=== PATIENT | male | born 1970 | race Caucasian/White ===

== ENCOUNTER 2020-03-15 14:23 | Outpatient (CLI) | payer MEDICARE, MEDICAID, SELFPAY ==
--- NOTE | ~2020-03-15 | XR_ITS ---
EXAMINATION: XR foot LT min 3V DATE: 03/15/2020 14:51 INDICATION: Left foot and first toe pain TECHNIQUE: Dorsoplantar, lateral, and 2 oblique views of the left foot were obtained. COMPARISON: 02/26/2012 FINDINGS: There is no fracture, dislocation, or subluxation. The bones, soft tissues, and joint space s are normal. IMPRESSION: 1. No acute osseous abnormality. Reviewed, dictated and finalized at location A. R LINEWORKER
== END 2020-03-15 14:24 | disposition home or self-care (01) ==
LOC: ANHIMG 14:30
PROVIDERS: PCP Family Medicine Adolescent Medicine; Visit Provider Physician Assistant
DX: M25.572 Pain in left ankle and joints of left foot (principal)
CPT/HCPCS: 73630

== ENCOUNTER 2020-03-20 07:32 | Outpatient (CLI) | payer MEDICARE, MEDICAID, SELFPAY ==
[2020-03-20 08:25] LABS: Alanine Aminotransferase 17 U/L (4-50); Albumin Level 4.3 g/dL (3.5-5.1); Alkaline Phosphatase 50 U/L (38-126); Anion Gap 6 mmol/L (8-16); Aspartate Amino Transferase 19 U/L (17-59); Bilirubin,Total 0.4 mg/dL (0.2-1.3); Blood Urea Nitrogen 12 mg/dL (9-20); Calcium 9.3 mg/dL (8.4-10.2); Carbon Dioxide 33 mmol/L (22-30); Chloride 97 mmol/L (98-107); Cholesterol 189 mg/dL (0-200); Estimated Glomerular Filt Rate > 60; Glucose 97 mg/dL (75-110); HDL Direct 34 mg/dL; Potassium 4.6 mmol/L (3.4-5.0); Sodium 136 mmol/L (137-145); Triglycerides 211 mg/dL (<150); Uric Acid 5.4 mg/dL (3.5-8.5)
[2020-03-20 08:39] LABS: LDL Cholesterol Direct 118 mg/dL
== END 2020-03-20 07:33 | disposition home or self-care (01) ==
PROVIDERS: PCP Family Medicine Adolescent Medicine; Visit Provider Physician Assistant
DX: E78.5 Hyperlipidemia, unspecified (principal); I10 Essential (primary) hypertension; M79.675 Pain in left toe(s)
CPT/HCPCS: 36415; 80053; 80061; 84550

== ENCOUNTER 2020-05-29 17:31 | Outpatient (CLI) | payer MEDICARE, MEDICAID, SELFPAY | END 2020-05-29 17:32 | disposition home or self-care (01) | LOC: ANHCOVIDVC 17:31 | PROVIDERS: PCP Family Medicine Adolescent Medicine | DX: Z23 Encounter for immunization (principal) | CPT/HCPCS: 0001A; 91300 ==

== ENCOUNTER 2020-06-19 17:26 | Outpatient (CLI) | payer MEDICARE, MEDICAID, SELFPAY | END 2020-06-19 17:27 | disposition home or self-care (01) | LOC: ANHCOVIDVC 17:26 | PROVIDERS: PCP Family Medicine Adolescent Medicine | DX: Z23 Encounter for immunization (principal) | CPT/HCPCS: 0002A; 91300 ==

== ENCOUNTER 2021-04-02 07:53 | Outpatient (CLI) | payer MEDICARE, MEDICAID, SELFPAY ==
[2021-04-02 08:31] LABS: Alanine Aminotransferase 20 U/L (4-50); Albumin Level 4.4 g/dL (3.5-5.1); Alkaline Phosphatase 56 U/L (38-126); Anion Gap 10 mmol/L (8-16); Aspartate Amino Transferase 19 U/L (17-59); Bilirubin,Total 0.3 mg/dL (0.2-1.3); Blood Urea Nitrogen 11 mg/dL (9-20); Calcium 9.3 mg/dL (8.4-10.2); Carbon Dioxide 30 mmol/L (22-30); Chloride 97 mmol/L (98-107); Cholesterol 195 mg/dL (0-200); Estimated Glomerular Filt Rate > 60; Glucose 110 mg/dL (65-110); HDL Direct 35 mg/dL; Potassium 4.4 mmol/L (3.4-5.0); Sodium 137 mmol/L (137-145); Triglycerides 230 mg/dL (<150)
[2021-04-02 08:42] LABS: LDL Cholesterol Direct 106 mg/dL
== END 2021-04-02 07:54 | disposition home or self-care (01) ==
PROVIDERS: PCP Family Medicine Adolescent Medicine; Visit Provider Family Medicine Adolescent Medicine
DX: E78.1 Pure hyperglyceridemia (principal); I10 Essential (primary) hypertension
CPT/HCPCS: 36415; 80053; 80061

== ENCOUNTER 2022-04-08 14:33 | Outpatient (CLI) | payer MEDICARE, MEDICAID, SELFPAY ==
--- NOTE | ~2022-04-08 | XR_ITS ---
EXAMINATION: XR chest 2V Exam Date/Time: 04/08/2022 14:42 SPECIAL TESTER HISTORY: R05.9 - Cough, unspecified Comparison: 07/20/2018. RESULT: Lines, tubes, and devices: None. Lungs and pleura: Low volumes with crowding. Cardiomediastinal silhouette: Stable. Other: No acute osseous or upper abdominal finding. IMPRESSION: No acute cardiopulmonary process. Reviewed, dictated and finalized at location K. IAL TESTER
== END 2022-04-08 14:34 | disposition home or self-care (01) ==
PROVIDERS: PCP Family Medicine Adolescent Medicine; Visit Provider Physician Assistant
DX: R05.9 Cough, unspecified (principal)
CPT/HCPCS: 71046

== ENCOUNTER 2022-04-12 07:10 | Outpatient (CLI) | payer MEDICARE, MEDICAID, SELFPAY ==
[2022-04-12 08:57] LABS: Alanine Aminotransferase 31 U/L (6-50); Albumin Level 4.6 g/dL (3.5-5.1); Alkaline Phosphatase 76 U/L (38-126); Anion Gap 4 mmol/L (8-16); Aspartate Amino Transferase 25 U/L (17-59); Bilirubin,Total 0.4 mg/dL (0.2-1.3); Blood Urea Nitrogen 14 mg/dL (9-20); Calcium 8.9 mg/dL (8.4-10.2); Carbon Dioxide 32 mmol/L (22-30); Chloride 95 mmol/L (98-107); Cholesterol 179 mg/dL (0-200); Estimated Glomerular Filt Rate > 60; Glucose 106 mg/dL (65-110); HDL Direct 37 mg/dL; Potassium 4.1 mmol/L (3.4-5.0); Sodium 131 mmol/L (137-145); Triglycerides 115 mg/dL (<150)
[2022-04-12 09:08] LABS: LDL Cholesterol Direct 101 mg/dL
== END 2022-04-12 07:11 | disposition home or self-care (01) ==
PROVIDERS: PCP Family Medicine Adolescent Medicine; Visit Provider Physician Assistant
DX: E78.1 Pure hyperglyceridemia (principal); I10 Essential (primary) hypertension
CPT/HCPCS: 36415; 80053; 80061

== ENCOUNTER 2022-07-10 17:07 | Emergency (ER) | payer MEDICARE, MEDICAID, SELFPAY ==
--- NOTE | ~2022-07-10 | XR_ITS ---
EXAMINATION: XR chest 2V DATE: 07/10/2022 17:46 INDICATION: Cough and congestion. TECHNIQUE: Frontal and lateral views of the chest were obtained. COMPARISON: Chest 2 views 04/08/2022 FINDINGS: The chest demonstrates clear lungs without pneumonia, pleural effusion, or pneumothorax. Th e heart size is normal. IMPRESSION: 1. No acute cardiopulmonary disease. Reviewed, dictated and finalized at location E.
--- NOTE | 2022-07-10 17:09 | ED.URI ---
HPI - URI/Sore Throat General Chief Complaint: Upper Respiratory Infection Stated Complaint: Cough,Congestion Time Seen by Provider: 07/10/22 17:15 Source: patient, RN notes reviewed and old records reviewed Mode of arrival: ambulatory Limitations: no limitations History of Present Illness HPI Narrative: 52-year-old male presents to the [facility] with mom with complaints of cough, chest congestion for 2 days. Denies chest pain. Denies shortness of breath. Denies fevers. Mom reports a productive cough. Has taken some Delsym with no relief. Onset (ago): day(s) Related Data Home Medications Medication Instructions Recorded Confirmed carbamazepine 200 mg 600 mg PO QAM AND QPM 1 AM 2PM 07/25/21 07/10/22 capsule,extended release [id number] krill oil 500 mg capsule 350 mg PO BID 07/25/21 07/10/22 lisinopril 40 mg tablet 40 mg PO DAILY 04/15/22 07/10/22 losartan 50 mg tablet 50 mg PO DAILY 07/10/22 07/10/22 Allergies Allergy/AdvReac Type Severity Reaction Status Date / Time metoclopramide [From Reglan] Allergy Jittery Verified 07/10/22 17:19 Review of Systems Review of Systems: All systems reviewed & are unremarkable except as noted in HPI and below Constitutional: Constitutional: Reports no additional constitutional complaints Eyes: Eyes: Reports no additional eye complaints ENT: Reports system reviewed and no additional complaints, except as documented Cardiovascular: Cardiovascular: Reports no additional cardiovascular complaints, Denies chest pain and Denies dyspnea Respiratory: Respiratory: Reports as per HPI, Reports chest congestion, Reports cough and Denies dyspnea Gastrointestinal: Gastrointestinal: Reports no additional gastrointestinal complaints, Denies abdominal pain, Denies nausea and Denies vomiting Musculoskeletal: Musculoskeletal: Reports no additional musculoskeletal complaints Integumentary/Breasts: Skin/Breast: Reports system reviewed and no additional complaints, except as docu Neurologic: Reports system reviewed and no additional complaints, except as documented Psychiatric: Psychiatric: Reports no additional psychiatric complaints Allergic/Immunologic: Allergic/Immunologic: Reports no additional allergic/immunologic complaints PMFSH Past Medical History Medical History Hypertension Hypertriglyceridemia Seizure disorder Surgical History Surgical History History of hip surgery History of umbilical hernia repair Hx of appendectomy Hx of brain surgery Family History Family History Father Family history of malignant neoplasm Colon polyp Hypertension Sibling Family history of diabetes mellitus in first degree relative Asthma Diabetes mellitus Grandparent Breast cancer Cerebrovascular accident Hypertension Grandparent Cerebrovascular accident Family history of coronary artery disease Hypertension Mother Depression Social History Social History Smoking status: Never smoker Second hand tobacco smoke exposure: No Alcohol intake: never Substance use: never Substance use type: does not use Living arrangements: with family Occupation/Education: occupation Gender identity (if verbalized by the patient): Male Sexual Orientation (if Verbalized by the Patient): Straight or Heterosexual Spiritual care concerns: No Agree to blood products: Yes Comments At the time of my signature, I reviewed and agree with the nursing past medical, surgical, social, and family history. There is no relevant family history pertinent to the patient complaint. Exam Const: General: cooperative, healthy appearing, comfortable, no acute distress, well developed, alert and well nourished Nutritional Appearance: well nourished Orientation/consciousness
[2022-07-10 17:15] VITALS: BP 139/79; PULSE 97; RESP 16; TEMP 36.5; O2SAT 98
== END 2022-07-10 18:10 | disposition home or self-care (01) ==
PROVIDERS: Emergency Provider Nurse Practitioner; PCP Family Medicine Adolescent Medicine
DX: J40 Bronchitis, not specified as acute or chronic (principal); I10 Essential (primary) hypertension; E78.1 Pure hyperglyceridemia; G40.909 Epilepsy, unspecified, not intractable, without status epilepticus
CPT/HCPCS: 71046; 99213; G0463

== ENCOUNTER 2022-07-14 16:39 | Emergency (ER) | payer MEDICARE, MEDICAID, SELFPAY ==
[2022-07-14 16:49] VITALS: BP 136/89; PULSE 73; RESP 16; TEMP 36.3; O2SAT 97
--- NOTE | 2022-07-14 16:52 | ED.EAR ---
HPI - Ear Problem General Chief complaint: Ear Stated complaint: Rt Ear Irritation Time Seen by Provider: 07/14/22 16:52 Source: patient Mode of arrival: ambulatory Limitations: no limitations History of Present Illness HPI Narrative: 52-year-old male presents with mom with complaint of right ear pain. Patient has had right ear pain for approximately 3 days. Prior to that he had congestion for approximately 1 week and continues to have congestion. Was seen at [facility] last week and diagnosed with bronchitis. Mom reports at that time was told that right ear was full of wax but it was not removed. Afebrile. Patient is well-appearing, talkative. No complaints of dizziness. All systems reviewed and negative except as noted above. Related Data Home Medications Medication Instructions Recorded Confirmed carbamazepine 200 mg 600 mg PO QAM AND QPM 1 AM 2PM 07/25/21 07/14/22 capsule,extended release [id number] krill oil 500 mg capsule 350 mg PO BID 07/25/21 07/14/22 lisinopril 40 mg tablet 40 mg PO DAILY 04/15/22 07/14/22 losartan 50 mg tablet 50 mg PO DAILY 07/10/22 07/14/22 Allergies Allergy/AdvReac Type Severity Reaction Status Date / Time metoclopramide [From Reglan] AdvReac Mild Jittery Verified 07/14/22 16:55 Review of Systems Review of Systems: CONSTITUTIONAL: Denies fever, chills, or sweats. EYES: Denies visual changes, redness, or discharge. ENT: Reports rhinorrhea, congestion, right ear pain. Denies sore throat CARDIOVASCULAR: Denies chest pain, palpitations, or edema. RESPIRATORY: Denies cough or dyspnea. GASTROINTESTINAL: Denies abdominal pain, nausea, vomiting, or diarrhea. GENITOURINARY: Denies dysuria or hematuria. SKIN: Denies rash or itching. MUSCULOSKELETAL: Denies back pain, joint pain, or myalgia. NEUROLOGIC: Denies headache, numbness, or weakness. PSYCHIATRIC: Denies anxiety or depression. All other systems reviewed are negative, except as documented in HPI. [facility] Past Medical History Medical History Hypertension Hypertriglyceridemia Seizure disorder Surgical History Surgical History History of hip surgery History of umbilical hernia repair Hx of appendectomy Hx of brain surgery Family History Family History Father Family history of malignant neoplasm Colon polyp Hypertension Sibling Family history of diabetes mellitus in first degree relative Asthma Diabetes mellitus Grandparent Breast cancer Cerebrovascular accident Hypertension Grandparent Cerebrovascular accident Family history of coronary artery disease Hypertension Mother Depression Social History Social History Smoking status: Never smoker Second hand tobacco smoke exposure: No Alcohol intake: never Substance use: never Substance use type: does not use Living arrangements: with family Occupation/Education: occupation Gender identity (if verbalized by the patient): Male Sexual Orientation (if Verbalized by the Patient): Straight or Heterosexual Spiritual care concerns: No Agree to blood products: Yes Comments reviewed Exam Narrative: GENERAL: This is a well-nourished, well-developed patient, in no apparent distress. HEAD: normocephalic, atraumatic. EYES: PERRL. Sclera clear/white. Vision is grossly intact. EARS: External ears normal, right ear canal is impacted with cerumen. Left ear canal normal. Left TM normal. NOSE: External nose normal with Primarily nasal drainage, erythema to nares with moderate congestion. THROAT: Mucous membranes moist, posterior pharynx clear. NECK: Neck supple, non-tender without lymphadenopathy, masses or thyromegaly. CARDIOVASCULAR: Regular rate and rhythm without murmurs, gallops, or rubs. RESPIRATORY: Clear
== END 2022-07-14 17:21 | disposition home or self-care (01) ==
PROVIDERS: Emergency Provider Nurse Practitioner Family; PCP Family Medicine Adolescent Medicine
DX: H66.91 Otitis media, unspecified, right ear (principal); H61.21 Impacted cerumen, right ear; I10 Essential (primary) hypertension; E78.1 Pure hyperglyceridemia; G40.909 Epilepsy, unspecified, not intractable, without status epilepticus
CPT/HCPCS: 69210; 99213; G0463

== ENCOUNTER 2022-09-22 10:06 | Outpatient (CLI) | payer MEDICARE, MEDICAID, SELFPAY ==
--- NOTE | 2022-09-22 10:42 | PCRCNOTE ---
PT. UNABLE TO COMPLETE PFT DUE TO DELAYS. PT. STRUGGLED WITH FOLLOWING DIRECTIONS. WOULD NOT BE ABLE TO GET ACCURATE RESULTS. CALLED PROVIDER TO NOTIFY THEM.
== END 2022-09-22 10:07 | disposition home or self-care (01) ==
LOC: ANHPFT 10:07
PROVIDERS: PCP Family Medicine Adolescent Medicine; Visit Provider Nurse Practitioner Family
DX: R05.3 Chronic cough (principal)
CPT/HCPCS: 99199

== ENCOUNTER 2023-05-11 16:45 | Emergency (ER) | payer MEDICARE, MEDICAID, SELFPAY ==
--- NOTE | ~2023-05-11 | XR_ITS ---
EXAM: XR humerus RT DATE: 05/11/2023 17:36 HISTORY: swollen, mass on arm, hx of lipocarcoma . COMPARISON: None available. FINDINGS: Normal mineralization. No fracture or dislocation. No lytic or blastic lesion. Mild degene rative changes in the shoulder and elbow. No erosion or periosteal change. Smoothly marginated fat de nsity 8.0 x 18.6 cm mass in the proximal medial soft tissues of the right upper arm. IMPRESSION: 18.6 cm fat density mass in the medial soft tissues of the right upper arm, possible lipoma, noting t hat more aggressive pathology cannot be excluded radiographically. Based on size, recommend surgical referral for possible excision. No acute osseous finding in the right humerus. Reviewed, dictated and finalized at location K. ER TECHNICIAN IMPRESSION: 18.6 cm fat density mass in the medial soft tissues of the right upper arm, pos sible lipoma, noting that more aggressive pathology cannot be excluded radiogra phically. Based on size, recommend surgical referral for possible excision. No acute osseous finding in the right humerus.
[2023-05-11 16:54] VITALS: BP 155/92; PULSE 92; RESP 16; TEMP 37.2; O2SAT 98
--- NOTE | 2023-05-11 17:20 | ED.EXTPRO ---
HPI - Extremity Problem General Chief complaint: Extremity Problem,Nontraumatic Stated complaint: Right Arm Pain Time Seen by Provider: 05/11/23 17:20 Source: patient Mode of arrival: ambulatory Limitations: no limitations History of Present Illness HPI Narrative: 53 yo M presents with Mom with c/o swelling to R upper arm. Mother unsure how long it's been there but just noticed today. Pt denies pain. 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 Mom has been waiting for call back from [facility] for appt. All systems reviewed and negative except as noted above. Related Data Home Medications Medication Instructions Recorded Confirmed carbamazepine 200 mg 600 mg PO QAM AND QPM 1 AM 2PM 07/25/21 05/11/23 capsule,extended release [id number] Allergies Allergy/AdvReac Type Severity Reaction Status Date / Time metoclopramide [From Reglan] AdvReac Mild Jittery Verified 05/11/23 17:05 Review of Systems Review of Systems: CONSTITUTIONAL: Denies fever, chills, or sweats. EYES: Denies visual changes, redness, or discharge. ENT: Denies rhinorrhea, congestion, sore throat, or otalgia. CARDIOVASCULAR: Denies chest pain, palpitations, or edema. RESPIRATORY: Denies cough or dyspnea. GASTROINTESTINAL: Denies abdominal pain, nausea, vomiting, or diarrhea. GENITOURINARY: Denies dysuria or hematuria. SKIN: Denies rash or itching. MUSCULOSKELETAL: Denies back pain, joint pain, or myalgia. Reports swelling to R upper extremity NEUROLOGIC: Denies headache, numbness, or weakness. PSYCHIATRIC: Denies anxiety or depression. All other systems reviewed are negative, except as documented in HPI. [facility] Past Medical History Medical History Hypertension Hypertriglyceridemia Seizure disorder Surgical History Surgical History History of hip surgery History of umbilical hernia repair Hx of appendectomy Hx of brain surgery Family History Family History Father Family history of malignant neoplasm Colon polyp Hypertension Sibling Family history of diabetes mellitus in first degree relative Asthma Diabetes mellitus Grandparent Breast cancer Cerebrovascular accident Hypertension Grandparent Cerebrovascular accident Family history of coronary artery disease Hypertension Mother Depression Social History Social History Smoking status: Never smoker Second hand tobacco smoke exposure: No Alcohol intake: never Substance use: never Substance use type: does not use Lack of Transportation: No Lack of Food: Never True Current Housing: I Have Housing Concerned About Future Housing: No Difficulty Paying Gas/Electric Bills: No Difficulty Paying for Meds: No Currently Unemployed: No Education: Decline to Answer Difficulty w/ Childcare or Family Care: No Living arrangements: with family Occupation/Education: occupation Gender identity (if verbalized by the patient): Male Sexual Orientation (if Verbalized by the Patient): Straight or Heterosexual Spiritual care concerns: No Agree to blood products: Yes Comments At time of signature, agree with nursing past medical, surgical, social and family history. There is no relevant family history pertinent to the presenting complaint. Exam Narrative: GENERAL: This is a well-nourished, well-developed patient, in no apparent distress. HEAD: normocephalic, atraumatic. EYES: PERRL. Sclera clear/white. Vision is grossly intact. EARS: External ears normal NOSE: External nose normal NECK: Neck supple, non-tender without lymphadenopathy, masses or thyromegaly. CARDIOVASCULAR: Regular rate and rhythm without murmurs, gallops, or rubs. RESPIRATORY: Clear to auscultation. Brianna
== END 2023-05-11 18:12 | disposition home or self-care (01) ==
PROVIDERS: Emergency Provider Nurse Practitioner Family; PCP Family Medicine Adolescent Medicine
DX: R22.31 Localized swelling, mass and lump, right upper limb (principal); C49.9 Malignant neoplasm of connective and soft tissue, unspecified; I10 Essential (primary) hypertension; G40.909 Epilepsy, unspecified, not intractable, without status epilepticus; E78.1 Pure hyperglyceridemia
CPT/HCPCS: 73060; 99213; G0463

== ENCOUNTER 2023-05-18 11:05 | Outpatient (CLI) | payer MEDICARE, MEDICAID, SELFPAY ==
--- NOTE | ~2023-05-18 | CT_ITS ---
EXAMINATION: CT humerus RT wo con DATE: 05/18/2023 11:51 INDICATION: Soft tissue mass at the right upper arm TECHNIQUE: High resolution computed tomography (CT) of the right upper arm was performed without intr avenous contrast. Additional sagittal and coronal reconstructions were performed. Automated exposure control and iterative reconstruction technique were employed. The dose-length product was 916.28 mGy- cm. COMPARISON: Radiographs dated 05/11/2023 FINDINGS: Macroscopic fat attenuation mass within the right triceps muscle belly consistent with an intramuscul ar lipoma which measures 14.5 cm proximal to distal length and 7.1 x 5.1 cm in maximal orthogonal dim ensions. No abnormal soft tissue component to suggest other atypical lipoma or liposarcoma. No other abnormal masses identified. No pathologically enlarged right axillary lymphadenopathy. Bone alignment is normal. Mild osteoarthritis at the right elbow, glenohumeral and acromioclavicular joints. No sarah nt effusions at the right shoulder or elbow. IMPRESSION: 1. 14.5 x 7.1 x 5.1 cm fat attenuation mass consistent with a right triceps intramuscular lipoma. Reviewed, dictated and finalized at location A. T[employer]ET METAL WORKER IMPRESSION: 1. 14.5 x 7.1 x 5.1 cm fat attenuation mass consistent with a right triceps int ramuscular lipoma.
== END 2023-05-18 11:06 ==
PROVIDERS: Visit Provider Family Medicine Adolescent Medicine
DX: R22.31 Localized swelling, mass and lump, right upper limb (principal)
CPT/HCPCS: 73200

== ENCOUNTER 2023-07-31 19:20 | Emergency (ER) | payer MEDICARE, MEDICAID, SELFPAY ==
[2023-07-31 19:34] VITALS: BP 143/85; PULSE 77; RESP 16; TEMP 36.4; O2SAT 100
[2023-07-31 19:53] VITALS: O2SAT 100
--- NOTE | 2023-07-31 19:58 | ED.ALLEREA ---
HPI - Allergic Reaction General Chief complaint: Allergic Reaction Stated complaint: surgical site redness Time Seen by Provider: 07/31/23 19:48 History of Present Illness HPI narrative: 53-year-old male presents emergency department for evaluation for a urticarial rash on his abdomen chest and back. Patient did have a history of renal mass that was excised July 06. Patient did have recent follow-up with his surgeons and had some of the glue removed from his abdomen. Family states that the rash started few days ago and has continued to worsen. Patient denies any associated abdominal pain but does report some itching. Family states the patient has had no new medication changes since his surgery. He did have some blood pressure medications that were changed at the time of the surgery because they were processed by a his kidneys. Other than the itching patient denies any pain or complaints. Related Data Home Medications Medication Instructions Recorded Confirmed carbamazepine 200 mg 600 mg PO QAM AND QPM 1 AM 2PM 07/25/21 05/11/23 capsule,extended release [id number] Allergies Allergy/AdvReac Type Severity Reaction Status Date / Time metoclopramide [From Reglan] AdvReac Mild Jittery Verified 07/31/23 19:41 Review of Systems Review of Systems: All systems reviewed & are unremarkable except as noted in HPI and below PMFSH Past Medical History Medical History Hypertension Hypertriglyceridemia Seizure disorder Surgical History Surgical History History of hip surgery History of umbilical hernia repair Hx of appendectomy Hx of brain surgery Family History Family History Father Family history of malignant neoplasm Colon polyp Hypertension Sibling Family history of diabetes mellitus in first degree relative Asthma Diabetes mellitus Grandparent Breast cancer Cerebrovascular accident Hypertension Grandparent Cerebrovascular accident Family history of coronary artery disease Hypertension Mother Depression Social History Social History Smoking status: Never smoker Second hand tobacco smoke exposure: No Alcohol intake: never Substance use: never Substance use type: does not use Lack of Transportation: No Lack of Food: Never True Current Housing: I Have Housing Concerned About Future Housing: No Difficulty Paying Gas/Electric Bills: No Difficulty Paying for Meds: No Currently Unemployed: No Education: Decline to Answer Difficulty w/ Childcare or Family Care: No Living arrangements: with family Occupation/Education: occupation Gender identity (if verbalized by the patient): Male Sexual Orientation (if Verbalized by the Patient): Straight or Heterosexual Spiritual care concerns: No Agree to blood products: Yes Exam Narrative: APPEARANCE: Well appearing, no pain, no distress, well-nourished. HEAD: normocephalic, atraumatic. EYES: PERRLA/EOMI, conjunctivae clear. NOSE: Normal no drainage EARS:TMS clear with good light reflex. THROAT: Pharynx clear, no exudate. NECK: Supple. No adenopathy, no masses. RESPIRATORY: Airway patent, respirations nonlabored. Clear to auscultation bilaterally, no rales, rhonchi, wheezing. CARDIOVASCULAR: Regular rate and rhythm without murmurs rubs or gallops. ABDOMINAL: Soft, nontender, nondistended, normal bowel sounds MUSCULOSKELETAL: Moves all extremities. Strength/ROM intact, No edema, No calf tenderness. NEURO: Alert. Cranial nerves II through XII intact. Good gait. Good coordination SKIN: Urticarial rash with hives across abdomen associated with the abdominal incision also intermittent hives on chest and back Course Vital Signs Vital signs: Vital Signs Temperature 97.6 F 05
[2023-07-31 20:20] LABS: Basophils Percent Auto 0.5 % (0.2-1.2); Eosinophils Absolute Auto 0.5 K/mm3 (0-0.3); Eosinophils Percent Auto 8.9 % (0-4.4); Hematocrit 37.8 % (42.0-52.0); Hemoglobin 12.7 g/dL (14.0-18.0); Immature Granulocyte Absolute 0.03 K/mm3 (0.00-0.031); Immature Granulocyte Percent A 0.5 % (0-0.5); Lymphocytes Absolute Auto 1.78 K/mm3 (0.9-3.2); Lymphocytes Percent Auto 29.4 % (18.3-44.2); Mean Corpuscular HGB Conc 33.6 g/dl (32-36); Mean Corpuscular Hemoglobin 30.5 pg (26-34); Mean Corpuscular Volume 90.9 fl (80-100); Mean Platelet Volume 7.9 fl (7.4-10.4); Monocytes Absolute Auto 0.6 K/mm3 (0.1-0.6); Monocytes Percent Auto 10.6 % (2.6-8.5); Neutrophils Percent Auto 50.1 % (45.5-73.1); Platelet Count Result 326 k/mm3 (150-375); Red Blood Count 4.16 M/mm3 (4.6-6.20); Red Cell Distribution Width 14.1 % (11.5-14.5); White Blood Count 6.1 K/mm3 (4.5-10.0)
[2023-07-31] MEDS: methylPREDNISolone SOD SUCC 125 MG VIAL IV PUSH (20:21)
[2023-07-31] MEDS: diphenhydrAMINE HCl INJ 50 MG/ML VIAL 25 MG IV PUSH (20:21)
[2023-07-31] MEDS: FAMOTIDINE 20 MG/2 ML VIAL IV PUSH (20:21)
[2023-07-31 20:29] LABS: Alanine Aminotransferase 66 U/L (6-50); Albumin Level 4.9 g/dL (3.5-5.1); Alkaline Phosphatase 89 U/L (38-126); Anion Gap 8 mmol/L (4-12); Aspartate Amino Transferase 31 U/L (17-59); Bilirubin,Total 0.5 mg/dL (0.2-1.3); Blood Urea Nitrogen 12 mg/dL (9-20); Calcium 9.4 mg/dL (8.4-10.2); Carbon Dioxide 31 mmol/L (22-30); Chloride 97 mmol/L (98-107); Estimated CRCL calculation 83 ml/min; Estimated Glomerular Filt Rate > 60; Glucose 87 mg/dL (65-110); Potassium 4.4 mmol/L (3.4-5.0); Sodium 136 mmol/L (137-145)
[2023-07-31 22:11] VITALS: BP 137/84; PULSE 95; RESP 17; TEMP 36.7; O2SAT 100
== END 2023-07-31 21:41 | disposition home or self-care (01) ==
PROVIDERS: Emergency Provider Emergency Medicine; PCP Family Medicine Adolescent Medicine
DX: T78.40XA Allergy, unspecified, initial encounter (principal); G40.909 Epilepsy, unspecified, not intractable, without status epilepticus
CPT/HCPCS: 36415; 80053; 85025; 96374; 96375; 99284; J1200; J2919

== ENCOUNTER 2023-10-02 15:54 | Emergency (ER) | payer MEDICARE, MEDICAID, SELFPAY ==
--- NOTE | ~2023-10-02 | CT_ITS ---
CT abdomen pelvis wo/w con Ordering provider: Shaquille Mathew APRN History: 53 years Male with . recent abd surgery, d/c from abd wound . Comparison: December 30, 2015 Technique: CT abdomen and pelvis without and with IV and without oral contrast. Automated exposure co ntrol and iterative reconstruction technique were employed. The dose-length product was 2822.33 mGy-c m. 100 MLO Omnipaque 350 was given IV. Findings: VISUALIZED LOWER CHEST: Dependent atelectatic changes UPPER ABDOMINAL ORGANS: Liver: Normal. Gallbladder: Contracted. Spleen: Normal. Stomach/duodenum: Normal. Pancreas: Normal. Adrenals: Right adrenal is not demonstrated may be surgically removed. Slightly prominent left adrena l gland. Kidneys: Status post right nephrectomy. Large left kidney upper pole renal cyst measuring 7 x 6.3 cm. Minimal fullness of the left renal pelvis and ureter with no definite stones. Minimal perinephric fa t stranding. PELVIC ORGANS: The bladder is normal. Small calcific area seen near to the dome of the urinary bladd er. BOWEL AND MESENTERY: Colon: Area of narrowing seen in the sigmoid colon most likely spastic. Follow-up advised. The append ix is not demonstrated. Most likely removed surgically. Small Bowel: Normal. No obstruction. Peritoneum/mesentery: No free air or free fluid. No mesenteric lymphadenopathy. RETROPERITONEUM: Mild atheromatous disease of the abdominal aorta. No retroperitoneal lymphadenopat hy. MUSCULOSKELETAL: Superficial soft tissues: Postoperative changes seen in the anterior abdominal wall. Tiny fluid colle ction is seen which measures 1.3 x 0.7 cm. Otherwise, The superficial soft tissues are normal. Bones: Age appropriate degenerative changes of the spine. Postoperative changes in the left hip. IMPRESSION: 1. Left renal cyst. Status post right nephrectomy. 2. Tiny fluid collection is seen which measures 1.3 x 0.7 cm. 3. Area of narrowing in the sigmoid colon most likely spastic. Follow-up advised. Reviewed, dictated and finalized at location A. IMPRESSION: 1. Left renal cyst. Status post right nephrectomy. 2. Tiny fluid collection is seen which measures 1.3 x 0.7 cm. 3. Area of narrowing in the sigmoid colon most likely spastic. Follow-up advis ed.
[2023-10-02 16:08] VITALS: BP 140/94; PULSE 108; RESP 16; O2SAT 100
--- NOTE | 2023-10-02 16:22 | ED.SKABFB ---
HPI - Skin/Abscess/Foreign Bdy General Chief complaint: Skin/Abscess/Foreign Body Stated complaint: rash Time Seen by Provider: 10/02/23 16:04 History of Present Illness HPI narrative: 53-year-old male with a history of renal cell cancer, had a right radical nephrectomy June presents to the emergency room for multiple medical complaints. Patient is accompanied by his mother who is requesting a CT scan of his abdomen to evaluate for possible postsurgical abscess. Patient is also complaining of a pruritic rash began on his back it has now spread to his chest arms and legs. Four weeks ago patient began taking Keytruda infusions, noticed he developed a rash 2 weeks later. Patient had a 2nd infusion 1 week ago, states the rash has worsened. Patient was seen by his PCP and started on a topical steroid cream which says alleviates the itching. Denies fever. Related Data Home Medications Medication Instructions Recorded Confirmed carbamazepine 200 mg 600 mg PO QAM AND QPM 1 AM 2PM 07/25/21 08/11/23 capsule,extended release [id number] Allergies Allergy/AdvReac Type Severity Reaction Status Date / Time metoclopramide [From Reglan] AdvReac Mild Jittery Verified 10/02/23 16:17 Review of Systems Review of Systems: ROS unremarkable except for noted in HPI PMFSH Past Medical History Medical History Hypertension Hypertriglyceridemia Seizure disorder Surgical History Surgical History History of hip surgery History of right radical nephrectomy (06/2023) History of umbilical hernia repair Hx of appendectomy Hx of brain surgery Family History Family History Father Family history of malignant neoplasm Colon polyp Hypertension Sibling Family history of diabetes mellitus in first degree relative Asthma Diabetes mellitus Grandparent Breast cancer Cerebrovascular accident Hypertension Grandparent Cerebrovascular accident Family history of coronary artery disease Hypertension Mother Depression Social History Social History Smoking status: Never smoker Second hand tobacco smoke exposure: No Alcohol intake: never Substance use: never Substance use type: does not use Lack of Transportation: No Lack of Food: Never True Current Housing: I Have Housing Concerned About Future Housing: No Difficulty Paying Gas/Electric Bills: No Difficulty Paying for Meds: No Currently Unemployed: No Education: Decline to Answer Difficulty w/ Childcare or Family Care: No Living arrangements: with family Occupation/Education: occupation Gender identity (if verbalized by the patient): Male Sexual Orientation (if Verbalized by the Patient): Straight or Heterosexual Spiritual care concerns: No Agree to blood products: Yes Exam Narrative: GENERAL: Well-appearing, well-nourished, no physical limitations, and in no acute distress. HEAD: Normocephalic, atraumatic. EYES: Conjunctivae normal, PERRLA and EOMI. CHEST: Clear to auscultation. No respiratory distress. No wheezes rales or rhonchi. HEART: Regular rate and rhythm. No murmur heard. Normal peripheral pulses. ABDOMEN: Soft, nontender, nondistended, normal active bowel sounds. Healing Transverse periumbilical wound, with overlying scabbing and scant amount of clear discharge some minimal surrounding erythema. No noted underlying masses, tenderness, warmth or swelling EXTREMITIES: Normal range of motion. No edema. No clubbing or cyanosis SKIN: diffuse erythematous papulovesicular rash noted to posterior/ anterior torso, arms, legs no discharge noted NEURO: No focal deficits. Alert and oriented x3. MAEW. CN's II-XI intact bilaterally, normal gait PSYCH: Cooperative. Normal mood and affect. Course
[2023-10-02 16:27] VITALS: BP 122/59; PULSE 105; RESP 16; O2SAT 100
[2023-10-02] MEDS: SODIUM CHLORIDE 0.9% IV 1,000 ML 999 ML IV CONT (16:59)
[2023-10-02 17:14] LABS: Basophils Percent Auto 0.4 % (0.2-1.2); Hematocrit 35.8 % (42.0-52.0); Hemoglobin 11.9 g/dL (14.0-18.0); Immature Granulocyte Absolute 0.01 K/mm3 (0.00-0.031); Immature Granulocyte Percent A 0.2 % (0-0.5); Lymphocytes Absolute Auto 1.51 K/mm3 (0.9-3.2); Lymphocytes Percent Auto 32.5 % (18.3-44.2); Mean Corpuscular HGB Conc 33.2 g/dl (32-36); Mean Corpuscular Hemoglobin 29.8 pg (26-34); Mean Corpuscular Volume 89.7 fl (80-100); Mean Platelet Volume 7.9 fl (7.4-10.4); Monocytes Percent Auto 20.9 % (2.6-8.5); Neutrophils Absolute Auto 2.1 K/mm3 (1.3-6.7); Platelet Count Result 255 k/mm3 (150-375); Red Blood Count 3.99 M/mm3 (4.6-6.20); Red Cell Distribution Width 12.7 % (11.5-14.5); White Blood Count 4.6 K/mm3 (4.5-10.0)
[2023-10-02 17:21] LABS: Alanine Aminotransferase 42 U/L (6-50); Albumin Level 4.6 g/dL (3.5-5.1); Alkaline Phosphatase 67 U/L (38-126); Anion Gap 9 mmol/L (4-12); Aspartate Amino Transferase 25 U/L (17-59); Bilirubin,Total 0.4 mg/dL (0.2-1.3); Blood Urea Nitrogen 23 mg/dL (9-20); Calcium 9.7 mg/dL (8.4-10.2); Carbon Dioxide 34 mmol/L (22-30); Chloride 91 mmol/L (98-107); Estimated CRCL calculation 76 ml/min; Estimated Glomerular Filt Rate > 60; Glucose 103 mg/dL (65-110); Potassium 4.2 mmol/L (3.4-5.0); Sodium 134 mmol/L (137-145)
== END 2023-10-02 18:48 | disposition home or self-care (01) ==
PROVIDERS: Emergency Provider Nurse Practitioner Family; PCP Family Medicine Adolescent Medicine
DX: L30.9 Dermatitis, unspecified (principal); C64.9 Malignant neoplasm of unspecified kidney, except renal pelvis; I10 Essential (primary) hypertension; G40.909 Epilepsy, unspecified, not intractable, without status epilepticus; E78.1 Pure hyperglyceridemia; Z90.5 Acquired absence of kidney; N28.1 Cyst of kidney, acquired; Z79.899 Other long term (current) drug therapy
CPT/HCPCS: 36415; 74178; 80053; 85025; 96360; 99284; J7030; Q9967

== ENCOUNTER 2023-10-04 19:35 | Observation (INO) | payer MEDICARE, MEDICAID, SELFPAY ==
--- NOTE | ~2023-10-04 | XR_ITS ---
EXAMINATION: XR chest 2V DATE: 10/04/2023 20:18 INDICATION: Fever TECHNIQUE: PA and lateral views of the chest were obtained. COMPARISON: Chest radiograph dated 07/10/2022 FINDINGS: The lungs remain clear with no focal airspace opacities, pulmonary edema, pleural effusion or pneumot horax. The cardiomediastinal silhouette is normal. Visualized bones and soft tissues are unremarkable . IMPRESSION: 1. No acute cardiopulmonary disease. Reviewed, dictated and finalized at location A.
--- NOTE | ~2023-10-04 | CT_ITS ---
EXAMINATION: CT abdomen pelvis w con DATE: 10/04/2023 22:33 INDICATION: Fever and vomiting. TECHNIQUE: Computed tomography (CT) of the abdomen and pelvis was performed with 100 mL Omnipaque-350 intravenous contrast. Automated exposure control and iterative reconstruction technique were employe d. The dose-length product was 570.97 mGy-cm. COMPARISON: 10/02/2023 FINDINGS: Mild atelectasis at the bilateral dependent lung bases. Heart size is normal. No pericardial or pleur al effusion. Liver, decompressed gallbladder, spleen, pancreas and left adrenal gland are normal. Sta tus post right nephrectomy and adrenalectomy. A couple left renal cysts, the larger a 6.8 cm exophyti c cyst at the upper pole. Postoperative change at the tip the cecum consistent with reported prior ap pendectomy. Bowels are otherwise unremarkable with no obstruction. No significant change in a 3.6 x 1 .8 x 2.3 cm loculated versus cystic fluid collection situated between the distal sigmoid colon and th e seminal vesicles likely either a peritoneal inclusion cyst or seroma. No free intraperitoneal gas o r fluid. Prostatomegaly. Chronic coarse calcification at the anterior bladder wall likely along a ura chal remnant. No pathologically enlarged abdominal or pelvic lymphadenopathy. Old healed intratrochan teric fracture of the left hip with likely fixation and small amount of surrounding heterotopic ossif ication. IMPRESSION: 1. No acute intra-abdominal/pelvic process. Reviewed, dictated and finalized at location A.
[2023-10-04 19:40] VITALS: BP 142/77; PULSE 119; RESP 22; TEMP 36.9; O2SAT 100
[2023-10-04 19:48] VITALS: BP 143/92; PULSE 125; RESP 20; O2SAT 100
[2023-10-04 20:01] VITALS: BP 138/71; PULSE 120; RESP 20; O2SAT 97
[2023-10-04 21:00] VITALS: PULSE 112; RESP 21; O2SAT 97
[2023-10-04] MEDS: ONDANSETRON INJ 4 MG/2 ML VIAL IV PUSH (21:00)
[2023-10-04] MEDS: SODIUM CHLORIDE 0.9% IV 1,000 ML 999 ML IV CONT (21:03)
[2023-10-04 21:08] LABS: Basophils Percent Auto 0.2 % (0.2-1.2); Hemoglobin 11.7 g/dL (14.0-18.0); Immature Granulocyte Absolute 0.03 K/mm3 (0.00-0.031); Immature Granulocyte Percent A 0.3 % (0-0.5); Lymphocytes Absolute Auto 0.56 K/mm3 (0.9-3.2); Lymphocytes Percent Auto 5.9 % (18.3-44.2); Mean Corpuscular HGB Conc 34.4 g/dl (32-36); Mean Corpuscular Hemoglobin 30.9 pg (26-34); Mean Corpuscular Volume 89.7 fl (80-100); Mean Platelet Volume 8.5 fl (7.4-10.4); Monocytes Absolute Auto 0.9 K/mm3 (0.1-0.6); Monocytes Percent Auto 9.5 % (2.6-8.5); Neutrophils Percent Auto 84.1 % (45.5-73.1); Platelet Count Result 236 k/mm3 (150-375); Red Blood Count 3.79 M/mm3 (4.6-6.20); Red Cell Distribution Width 12.9 % (11.5-14.5); White Blood Count 9.5 K/mm3 (4.5-10.0)
--- NOTE | 2023-10-04 21:16 | ED.FEVER ---
HPI - Fever General Chief Complaint: Fever Stated Complaint: fever-going through chemo Time Seen by Provider: 10/04/23 19:51 Source: patient and family Mode of arrival: ambulatory Limitations: no limitations History of Present Illness HPI Narrative: This is a 53 year old male that presents to the ER for fever. Ongoing today. Reports associated nausea and vomiting. Is currently on immune modulating therapy, Keytruda for RCC. Mother reports he has had some clear drainage from his abdominal incision from his nephrectomy. Reports this has been ongoing over the last week. Denies cough, congestion, sore throat, dysuria, hematuria. Related Data Home Medications Medication Instructions Recorded Confirmed carbamazepine 200 mg 600 mg PO QAM AND QPM 1 AM 2PM 07/25/21 08/11/23 capsule,extended release [id number] pembrolizumab 50 mg intravenous mg IV 10/04/23 solution Allergies Allergy/AdvReac Type Severity Reaction Status Date / Time metoclopramide [From Reglan] AdvReac Mild Jittery Verified 10/04/23 19:43 Review of Systems Review of Systems: CONSTITUTIONAL: Reports fever ENT: Denies rhinorrhea, congestion, sore throat RESPIRATORY: Denies cough GASTROINTESTINAL: Reports abdominal pain, nausea, vomiting. Denies diarrhea. GENITOURINARY: Denies dysuria or hematuria. SKIN: Reports rash All systems reviewed & are unremarkable except as noted in HPI and below PMFSH Past Medical History Medical History (Updated 10/05/23 @ 02:38 by Rebeca Whyte PA-C) History of renal cell cancer Hypertension Hypertriglyceridemia Seizure disorder Surgical History Surgical History History of hip surgery History of right radical nephrectomy (06/2023) History of umbilical hernia repair Hx of appendectomy Hx of brain surgery Family History Family History Father Family history of malignant neoplasm Colon polyp Hypertension Sibling Family history of diabetes mellitus in first degree relative Asthma Diabetes mellitus Grandparent Breast cancer Cerebrovascular accident Hypertension Grandparent Cerebrovascular accident Family history of coronary artery disease Hypertension Mother Depression Social History Social History Smoking status: Never smoker Second hand tobacco smoke exposure: No Alcohol intake: never Substance use: never Substance use type: does not use Lack of Transportation: No Lack of Food: Never True Current Housing: I Have Housing Concerned About Future Housing: No Difficulty Paying Gas/Electric Bills: No Difficulty Paying for Meds: No Currently Unemployed: No Education: Decline to Answer Difficulty w/ Childcare or Family Care: No Living arrangements: with family Occupation/Education: occupation Gender identity (if verbalized by the patient): Male Sexual Orientation (if Verbalized by the Patient): Straight or Heterosexual Spiritual care concerns: No Agree to blood products: Yes Exam Narrative: GENERAL: Well-appearing, well-nourished, and in no acute distress. HEAD: Normocephalic, atraumatic. EYES: EOMI. ENT: Nares clear, no rhinorrhea or epistaxis. Mucous membranes moist. Oropharynx without tonsillar hypertrophy exudate or other lesions. NECK: Supple. No adenopathy or masses. CHEST: Clear to auscultation. No respiratory distress. No wheezes rales or rhonchi HEART: Regular rate and rhythm. No murmur heard. Normal peripheral pulses. ABDOMEN: Soft, nontender, nondistended, normal active bowel sounds. Midline incision with scabbing present with very mild redness, no abnormal drainage EXTREMITIES: Normal range of motion. No edema. SKIN: Warm, dry, no rash. NEURO: No focal deficits. Alert and oriented x3. PSYCH: Normal mood and affect Course JOB DEVELOPMENT SPECIALIST/PA Physician Supervision Patient and derian
[2023-10-04 21:18] LABS: Lactic Acid Reflex 1.4 mmol/L (0.7-2.0)
[2023-10-04 21:19] LABS: INR 1.1; Lipase 80 U/L (23-300); Partial Thromboplastin Time 24.6 Seconds (22.3-36.8); Prothrombin Time 14.3 Seconds (11.1-14.7)
[2023-10-04 21:24] LABS: Alanine Aminotransferase 32 U/L (6-50); Albumin Level 4.4 g/dL (3.5-5.1); Alkaline Phosphatase 67 U/L (38-126); Anion Gap 11 mmol/L (4-12); Aspartate Amino Transferase 20 U/L (17-59); Bilirubin,Total 0.6 mg/dL (0.2-1.3); Blood Urea Nitrogen 19 mg/dL (9-20); Calcium 9.7 mg/dL (8.4-10.2); Carbon Dioxide 29 mmol/L (22-30); Chloride 93 mmol/L (98-107); Estimated CRCL calculation 83 ml/min; Estimated Glomerular Filt Rate > 60; Glucose 126 mg/dL (65-110); Potassium 3.9 mmol/L (3.4-5.0); Sodium 133 mmol/L (137-145)
[2023-10-04 22:00] VITALS: BP 153/77; PULSE 122; RESP 21; O2SAT 97
[2023-10-04 22:01] LABS: Influenza A QL RT-PCR Negative (Negative); Influenza B QL RT-PCR Negative (Negative); RSV RNA, RT-PCR Negative (Negative); SARS-CoV-2 RNA PCR Negative (Negative)
[2023-10-04 22:03] VITALS: BP 153/77; PULSE 120; RESP 22; O2SAT 95
[2023-10-05] VITALS (18 sets, daily range): BP systolic 108–154; BP diastolic 66–88; PULSE 95–114; RESP 16–25; TEMP 36.9–37.1; O2SAT 95–99; BMI 28.3; BMI 29.4
[2023-10-05 00:39] LABS: Appearance Urine Clear (Clear); Bacteria Urine 4+ /hpf; Bilirubin Urine Negative (Negative); Blood Urine 1+ (Negative); Color Urine Yellow (Yellow); Glucose Urine UA Negative (Negative); Ketones Urine Negative (Negative); Leukocyte Esterase Ur Trace LEU/UL (Negative); Nitrate Urine Positive (Negative); Non Pathogenic Casts 0-2; Protein Urine Trace mg/dL (Negative); Squamous Epithelial Cell Urine None Seen /hpf (Few); WBC Urine 21-50 /hpf (0-3); pH Urine 6.5 (5.0-9.0)
[2023-10-05 00:53] LABS: Add Urine Microscopic? YES; Specific Grav Ur 1.015 (1.001-1.035)
[2023-10-05] MEDS: SODIUM CHLORIDE 0.9% IV 1,000 ML 999 ML IV CONT (00:55)
[2023-10-05] MEDS: SODIUM CHLORIDE 0.9% IV 1,000 ML 125 ML IV CONT ×3 (02:33→14:15)
[2023-10-05] MEDS: carBAMazepine 200 MG TABLET 400 MG PO (03:12)
[2023-10-05] MEDS: ATORVASTATIN 40 MG TABLET PO ×2 (03:12→20:06)
[2023-10-05 04:08] LABS: Glucose Point of Care 147 mg/dl (65-105)
--- NOTE | 2023-10-05 08:07 | PM.IMHP ---
H&P: HPI History of Present Illness Date/Time: 10/05/23 08:07 Chief Complaint: fever Narrative: 53 year old male with pmh/o History of renal cell cancer, Hypertension, Hypertriglyceridemia, Seizure disorder that presents to the ER for fever. Ongoing today. Reports associated nausea and vomiting. Is currently on immune modulating therapy, Keytruda for RCC. Mother reports he has had some clear drainage from his abdominal incision from his nephrectomy. Reports this has been ongoing over the last week. Denies cough, congestion, sore throat, dysuria, hematuria. 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 Saw Dr. Saldaña, urologist, who referred him to Dr. Barnett (oncologist) due to the renal vein involvement. On 07/30 he went to ER with all over rash that was very pruritic. Given prednisone and nifedipine & carvedilol for the hypertension. He had been on telmisartan & HCTZ for long time for BP but that was held after the surgery. Now has been back on those and stopped the nifedipine & carvedilol. The rash is no longer itching and is going away. in ER: Afebrile, mild tachycardic, received IV fluids. Blood pressure is stable. CBC without leukocytosis. Metabolic panel without concerning findings. Urine without evidence of infection- culture pending. Patient started on IV antibiotics. Influenza, RSV, and COVID screens are negative. CT abdomen and pelvis without acute findings. Chest x-ray without acute cardiopulmonary abnormality. Patient and family updated on workup and recommendation for admission. Spoke with hospitalist about patient and workup who accepts admission 10/04 pt is seen and examined. Mother not at the bedside- so unable to get much information- he is very pleasant but poor historian. He denies alcohol, tobacco use. Reports no acute issues- feels better now- no pain, no n/v/d. Review of Systems Constitutional: Constitutional: Reports body ache(s) and Reports chills Eyes: Eyes: Denies photophobia ENT: Denies nasal congestion Cardiovascular: Cardiovascular: Denies chest pain, Denies pedal edema, Denies leg edema and Denies lightheadedness Respiratory: Respiratory: Denies chest congestion and Denies cough Gastrointestinal: Gastrointestinal: Denies abdominal pain Musculoskeletal: Musculoskeletal: Denies myalgias Psychiatric: Psychiatric: Denies anxiety [facility] Past Medical History Medical History History of renal cell cancer Hypertension Hypertriglyceridemia Seizure disorder Surgical History Surgical History History of hip surgery History of right radical nephrectomy (06/2023) History of umbilical hernia repair Hx of appendectomy Hx of brain surgery Family History Family History Father Family history of malignant neoplasm Colon polyp Hypertension Sibling Family history of diabetes mellitus in first degree relative Asthma Diabetes mellitus Grandparent Breast cancer Cerebrovascular accident Hypertension Grandparent Cerebrovascular accident Family history of coronary artery disease Hypertension Mother Depression Social History Social History Smoking status: Never smoker Second hand tobacco smoke exposure: No Alcohol intake: never Substance use: never Substance use type: does not use Do You Feel Safe in your Home?: Yes Lack of Transportation: No Lack of Food: Never True Current Housing: I Have Housing Concerned About Future Housing: No Difficulty Paying Gas/Electric Bills: No Difficulty Paying for Meds: No Currently Unemployed: No [employer]
[2023-10-05 09:50] LABS: Basophils Percent Auto 0.1 % (0.2-1.2); Hematocrit 28.7 % (42.0-52.0); Hemoglobin 9.5 g/dL (14.0-18.0); Immature Granulocyte Absolute 0.03 K/mm3 (0.00-0.031); Immature Granulocyte Percent A 0.3 % (0-0.5); Lymphocytes Absolute Auto 0.87 K/mm3 (0.9-3.2); Lymphocytes Percent Auto 8.2 % (18.3-44.2); Mean Corpuscular HGB Conc 33.1 g/dl (32-36); Mean Corpuscular Hemoglobin 30.2 pg (26-34); Mean Corpuscular Volume 91.1 fl (80-100); Mean Platelet Volume 7.9 fl (7.4-10.4); Monocytes Absolute Auto 1.2 K/mm3 (0.1-0.6); Monocytes Percent Auto 11.4 % (2.6-8.5); Neutrophils Absolute Auto 8.4 K/mm3 (1.3-6.7); Platelet Count Result 187 k/mm3 (150-375); Red Blood Count 3.15 M/mm3 (4.6-6.20); Red Cell Distribution Width 13.3 % (11.5-14.5); White Blood Count 10.6 K/mm3 (4.5-10.0)
[2023-10-05] MEDS: TELMISARTAN 40 MG TABLET 80 MG PO (09:57)
[2023-10-05] MEDS: CARBAMAZEPINE XR 200 MG TAB.ER.12H PO (09:57)
[2023-10-05] MEDS: TRIAMCINOLONE ACET 0.5% CREAM 15 GM TUBE 1 APPLIC TOPICAL ×2 (09:57→18:09)
[2023-10-05] MEDS: hydroCHLOROthiazide 25 MG TABLET PO (09:57)
[2023-10-05 10:03] LABS: Alanine Aminotransferase 30 U/L (6-50); Albumin Level 3.6 g/dL (3.5-5.1); Alkaline Phosphatase 54 U/L (38-126); Anion Gap 9 mmol/L (4-12); Aspartate Amino Transferase 21 U/L (17-59); Bilirubin,Total 0.7 mg/dL (0.2-1.3); Blood Urea Nitrogen 18 mg/dL (9-20); Calcium 8.8 mg/dL (8.4-10.2); Carbon Dioxide 27 mmol/L (22-30); Chloride 96 mmol/L (98-107); Estimated CRCL calculation 83 ml/min; Estimated Glomerular Filt Rate > 60; Glucose 152 mg/dL (65-110); Potassium 3.7 mmol/L (3.4-5.0); Sodium 132 mmol/L (137-145)
[2023-10-05 10:17] LABS: Erythrocyte Sedimentation Rate 131 mm/hr (0-20)
[2023-10-05 10:20] LABS: CRP 16.6 mg/dL (<1.0)
[2023-10-05 10:35] LABS: Iron 23 ug/dL (49-181)
[2023-10-05 10:45] LABS: Percent Iron Saturation 8 % (20-50)
[2023-10-05 11:07] LABS: Folic Acid 8.3 ng/mL (2.76->20)
--- NOTE | 2023-10-05 12:14 | PDONCCN ---
HPI - Date of Consult Date/Time: 10/05/23 19:03 <PardeepLeon Den - 10/05/23 19:07> 10/05/23 12:14 <Bita Stokes - 10/05/23 12:17> Requesting Physician: Aster Benitez DO <Leon Roberto - 10/05/23 19:07> Aster Benitez DO <Bita Stokes - 10/05/23 12:17> Primary Care Provider: Slade Juárez MD <Leon Roberto - 10/05/23 19:07> Slade Juárez MD <Bita Stokes - 10/05/23 12:17> - Consult Narrative Reason for consult: Renal Cell Carcinoma <DivyaBita - 10/05/23 12:17> Narrative: Ranjit Pisano is a 53 year old male <Leon Roberto - 10/05/23 19:07> Ranjit Pisano is a 53 year old male with a past medical history of HTN, HLD, seizure disorder, and renal cell carcinoma diagnosed in Mar 2023 s/p nephrectomy who was admitted for fevers. 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 He has been following with Dr. Morales, and Dr. Saldaña at [facility] for his RCC management. He recently started Keytruda and his 2nd dose was on 09/24/23. He reports tolerating first infusion well in August with no side effects. He reports fever started on Fri up to 101.9F. Mother reports only one single fever. He reports eating and drinking well. Denies any n/v/d or chills/cough. Labs notable for WBC 10.6, Hgb 9.5, Hct 28.7, Plt 187 Iron 23 % sat 8 B12 311 ESR 131 CRP 16 <DivyaBita - 10/05/23 12:24> Review of Systems - Review of Systems All systems reviewed & are unremarkable except as noted in HPI and bel <DivyaBita - 10/05/23 12:22> [facility] Medical History: Medical History (Last Updated 10/04/23 @ 21:20 by Rebeca Whyte PA-C) History of renal cell cancer Hypertension Hypertriglyceridemia Seizure disorder <Leon Roberto M. - 10/05/23 19:07> Medical History (Last Updated 10/04/23 @ 21:20 by Rebeca Whyte PA-C) History of renal cell cancer Hypertension Hypertriglyceridemia Seizure disorder <OscarBita dugan - 10/05/23 12:17> Surgical History: Surgical History (Last Reviewed 10/02/23 @ 16:52 by Shaquille Mathew APRN) History of hip surgery History of right radical nephrectomy Onset Date: 06/2023 History of umbilical hernia repair Hx of appendectomy Hx of brain surgery <PardeepLeon M. - 10/05/23 19:07> Surgical History (Last Reviewed 10/02/23 @ 16:52 by Shaquille Mathew APRN) History of hip surgery History of right radical nephrectomy Onset Date: 06/2023 History of umbilical hernia repair Hx of appendectomy Hx of brain surgery <Bita Stokes - 10/05/23 12:17> Family History: Family History (Last Reviewed 10/02/23 @ 16:52 by Shaquille Mathew APRN) Father Family history of malignant neoplasm Colon polyp Hypertension Sibling Family history of diabetes mellitus in first degree relative Asthma Diabetes mellitus Grandparent Breast cancer Cerebrovascular accident Hypertension Grandparent Cerebrovascular accident Family history of coronary artery disease Hypertension Mother Depression <PardeepLeon M. - 10/05/23 19:07> Family History (Last Reviewed 10/02/23 @ 16:52 by Shaquille Mathew APRN) Father Family history of malignant neoplasm Colon polyp Hypertension Sibling Family history of diabetes mellitus in first degree relative Asthma Diabetes mellitus Grandparent Breast cancer Cerebrovascular accident Hypertension Grandparent Cerebrovascular accident Family history of coronary artery disease Hypertension Mother Depression <Bita Stokes - 10/05/23 12:17> - Social History Social History: Social History (Last Reviewed 10/02/23 @ 16:52 by Shaquille Mathew APRN) Gender Identity: Gender identity (if verbalized by the patient): Male Sexual Orientation: Sexual Orientation (if Verbalized by the
[2023-10-05] MEDS: IRON SUCROSE COMPLEX 400 MG, IRON SUCROSE COMPLEX 100 MG in SODIUM CHLORIDE 0.9% IV 250 ML 78.57 MG IVPB (14:13)
[2023-10-05] MEDS: FERROUS SULFATE 325 MG TABLET DR PO (18:09)
[2023-10-05] MEDS: CYANOCOBALAMIN INJ 1,000 MCG/ML VIAL 1000 MCG IM (20:06)
[2023-10-05] MEDS: IRON SUCROSE COMPLEX 400 MG, IRON SUCROSE COMPLEX 100 MG in SODIUM CHLORIDE 0.9% IV 250 ML 78 MG IVPB (20:06)
[2023-10-05] MEDS: CARBAMAZEPINE XR 200 MG TAB.ER.12H 400 MG PO (20:06)
[2023-10-06] VITALS: PULSE 94
[2023-10-06 04:00] VITALS: PULSE 97
[2023-10-06 06:00] VITALS: BP 142/86; PULSE 102; RESP 20; TEMP 36.8; O2SAT 98
[2023-10-06] MEDS: SODIUM CHLORIDE 0.9% IV 1,000 ML 125 ML IV CONT (06:15)
[2023-10-06 06:34] LABS: Basophils Percent Auto 0.2 % (0.2-1.2); Hematocrit 26.8 % (42.0-52.0); Immature Granulocyte Absolute 0.08 K/mm3 (0.00-0.031); Immature Granulocyte Percent A 0.7 % (0-0.5); Lymphocytes Absolute Auto 1.18 K/mm3 (0.9-3.2); Mean Corpuscular HGB Conc 33.6 g/dl (32-36); Mean Corpuscular Hemoglobin 30.6 pg (26-34); Mean Corpuscular Volume 91.2 fl (80-100); Mean Platelet Volume 8.6 fl (7.4-10.4); Monocytes Absolute Auto 1.5 K/mm3 (0.1-0.6); Monocytes Percent Auto 13.8 % (2.6-8.5); Neutrophils Percent Auto 74.3 % (45.5-73.1); Platelet Count Result 183 k/mm3 (150-375); Red Blood Count 2.94 M/mm3 (4.6-6.20); Red Cell Distribution Width 13.1 % (11.5-14.5); White Blood Count 10.8 K/mm3 (4.5-10.0)
[2023-10-06 06:41] LABS: Alanine Aminotransferase 29 U/L (6-50); Albumin Level 3.3 g/dL (3.5-5.1); Alkaline Phosphatase 74 U/L (38-126); Anion Gap 9 mmol/L (4-12); Aspartate Amino Transferase 20 U/L (17-59); Bilirubin,Total 0.5 mg/dL (0.2-1.3); Blood Urea Nitrogen 15 mg/dL (9-20); Calcium 8.7 mg/dL (8.4-10.2); Carbon Dioxide 26 mmol/L (22-30); Chloride 97 mmol/L (98-107); Estimated CRCL calculation 83 ml/min; Estimated Glomerular Filt Rate > 60; Glucose 103 mg/dL (65-110); Potassium 3.5 mmol/L (3.4-5.0); Sodium 132 mmol/L (137-145)
[2023-10-06] MEDS: TELMISARTAN 40 MG TABLET 80 MG PO (08:03)
[2023-10-06] MEDS: hydroCHLOROthiazide 25 MG TABLET PO (08:04)
[2023-10-06] MEDS: TRIAMCINOLONE ACET 0.5% CREAM 15 GM TUBE 1 APPLIC TOPICAL (08:04)
[2023-10-06] MEDS: FERROUS SULFATE 325 MG TABLET DR PO (08:04)
[2023-10-06] MEDS: CARBAMAZEPINE XR 200 MG TAB.ER.12H PO (08:04)
--- NOTE | 2023-10-06 08:24 | PM.IMPN ---
Progress Note: A&P Assessment and Plan (1) Acute UTI: Code(s): N39.0 - Urinary tract infection, site not specified Status: Acute Assessment and Plan: - ceftriaxone 1 gm IV - ua culture pending - continue IV hydration (2) Hypertriglyceridemia: Code(s): E78.1 - Pure hyperglyceridemia Status: Acute Assessment and Plan: - chronic problems- continue statin (3) Seizure disorder: Code(s): G40.909 - Epilepsy, unspecified, not intractable, without status epilepticus Status: Acute Assessment and Plan: - chronic problem- continue carbamazepine - seizure precautions (4) Hypertension: Code(s): I10 - Essential (primary) hypertension Status: Acute Assessment and Plan: - chronic issues- continue home HCTZ, telmisartan (5) Renal cell carcinoma: Code(s): C64.9 - Malignant neoplasm of unspecified kidney, except renal pelvis Status: Acute Assessment and Plan: - oncology consulted, notes reviewed: Renal Cell Carcinoma- Pt diagnosed with RCC in Mar 2023 and s/p nephrectomy and has started Keytruda. Patient received second dose of Keytruda and recently had a fever up to 101.9F. Blood cultures and urine culture pending. There is a possibility of UTI. Continue antibiotics. There is also a possibility of fevers secondary to Keytruda. Patient hasn't had any fevers since admission. Discussed monitoring for fevers at home after discharge and discussing with primary oncologist as well. Anemia- Hgb 10.6 today. I have ordered iron studies which show RAYMUNDO. B12 311. I will order IV Venofer and to start BID iron 65mg daily as well. Continue as discharge Plan SCD PIV heart healthy diet Time Spent With Patient Time with patient: 25 - 35 minutes Subjective Date/time seen: 10/06/23 08:24 Interval history: Narrative: 53 year old male with pmh/o History of renal cell cancer, Hypertension, Hypertriglyceridemia, Seizure disorder that presents to the ER for fever. Ongoing today. Reports associated nausea and vomiting. Is currently on immune modulating therapy, Keytruda for RCC. Mother reports he has had some clear drainage from his abdominal incision from his nephrectomy. Reports this has been ongoing over the last week. Denies cough, congestion, sore throat, dysuria, hematuria. 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 Saw Dr. Saldaña, urologist, who referred him to Dr. Barnett (oncologist) due to the renal vein involvement. On 07/30 he went to ER with all over rash that was very pruritic. Given prednisone and nifedipine & carvedilol for the hypertension. He had been on telmisartan & HCTZ for long time for BP but that was held after the surgery. Now has been back on those and stopped the nifedipine & carvedilol. The rash is no longer itching and is going away. in ER: Afebrile, mild tachycardic, received IV fluids. Blood pressure is stable. CBC without leukocytosis. Metabolic panel without concerning findings. Urine without evidence of infection- culture pending. Patient started on IV antibiotics. Influenza, RSV, and COVID screens are negative. CT abdomen and pelvis without acute findings. Chest x-ray without acute cardiopulmonary abnormality. Patient and family updated on workup and recommendation for admission. Spoke with hospitalist about patient and workup who accepts admission 10/04 pt is seen and examined. Mother not at the bedside- so unable to get much information- he is very pleasant but poor historian. He denies alcohol, tobacco use. Reports no acute issues- feels better now- no pain, no n/v/d. 10/05- pt is seen and examined... Review of Systems Constitutional: Constitutional: Reports body ache(s) and Reports chills Eyes: Eyes: Denies photophobia ENT: D
--- NOTE | 2023-10-06 13:16 | PM.DS ---
DS: Admitting Diagnosis Discharge Date 10/05 Admitting Diagnosis fever DS: Discharge Diagnosis Discharge Diagnosis (1) Acute UTI: Code(s): N39.0 - Urinary tract infection, site not specified Status: Acute Assessment and Plan: - ceftriaxone 1 gm IV - ua culture pending - continue IV hydration (2) Hypertriglyceridemia: Code(s): E78.1 - Pure hyperglyceridemia Status: Acute Assessment and Plan: - chronic problems- continue statin (3) Seizure disorder: Code(s): G40.909 - Epilepsy, unspecified, not intractable, without status epilepticus Status: Acute Assessment and Plan: - chronic problem- continue carbamazepine - seizure precautions (4) Hypertension: Code(s): I10 - Essential (primary) hypertension Status: Acute Assessment and Plan: - chronic issues- continue home HCTZ, telmisartan (5) Renal cell carcinoma: Code(s): C64.9 - Malignant neoplasm of unspecified kidney, except renal pelvis Status: Acute Assessment and Plan: - oncology consulted, notes reviewed: Renal Cell Carcinoma- Pt diagnosed with RCC in Mar 2023 and s/p nephrectomy and has started Keytruda. Patient received second dose of Keytruda and recently had a fever up to 101.9F. Blood cultures and urine culture pending. There is a possibility of UTI. Continue antibiotics. There is also a possibility of fevers secondary to Keytruda. Patient hasn't had any fevers since admission. Discussed monitoring for fevers at home after discharge and discussing with primary oncologist as well. Anemia- Hgb 10.6 today. I have ordered iron studies which show RAYMUNDO. B12 311. I will order IV Venofer and to start BID iron 65mg daily as well. Continue as discharge Plan SCD PIV heart healthy diet DS: Summary Hospital Course Hospital Course: 53 year old male with pmh/o History of renal cell cancer, Hypertension, Hypertriglyceridemia, Seizure disorder that presents to the ER for fever. Ongoing today. Reports associated nausea and vomiting. Is currently on immune modulating therapy, Keytruda for RCC. Mother reports he has had some clear drainage from his abdominal incision from his nephrectomy. Reports this has been ongoing over the last week. Denies cough, congestion, sore throat, dysuria, hematuria. 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 Saw Dr. Saldaña, urologist, who referred him to Dr. Barnett (oncologist) due to the renal vein involvement. On 07/30 he went to ER with all over rash that was very pruritic. Given prednisone and nifedipine & carvedilol for the hypertension. He had been on telmisartan & HCTZ for long time for BP but that was held after the surgery. Now has been back on those and stopped the nifedipine & carvedilol. The rash is no longer itching and is going away. in ER: Afebrile, mild tachycardic, received IV fluids. Blood pressure is stable. CBC without leukocytosis. Metabolic panel without concerning findings. Urine without evidence of infection- culture pending. Patient started on IV antibiotics. Influenza, RSV, and COVID screens are negative. CT abdomen and pelvis without acute findings. Chest x-ray without acute cardiopulmonary abnormality. Patient and family updated on workup and recommendation for admission. Spoke with hospitalist about patient and workup who accepts admission 10/04 pt is seen and examined. Mother not at the bedside- so unable to get much information- he is very pleasant but poor historian. He denies alcohol, tobacco use. Reports no acute issues- feels better now- no pain, no n/v/d. 10/05- pt is seen and examined. He is doing well, reports no chills, no pain. Afebrile. Will discharge today- with a close f/u with pcp/oncology. Status at Discharge Functional
[2023-10-09 09:48] LABS: Methylmalonic Acid 302 nmol/L (55-335)
--- NOTE | 2023-10-13 09:50 | PC.NURSE ---
Blood cx are negative.
[2023-10-13 14:38] LABS: Soluble Transferrin Receptor 0.76 mg/L (0.76-1.76)
== END 2023-10-06 15:20 | disposition home or self-care (01) ==
LOC: ANHED 10-05 02:38 → ANH3MEDSUR 10-05 03:37
PROVIDERS: Nurse Practitioner Family; Admitting Provider Internal Medicine; Emergency Provider Physician Assistant; PCP Family Medicine Adolescent Medicine; Visit Provider Internal Medicine
DX: N39.0 Urinary tract infection, site not specified (principal); C64.9 Malignant neoplasm of unspecified kidney, except renal pelvis; E78.1 Pure hyperglyceridemia; I10 Essential (primary) hypertension; G40.909 Epilepsy, unspecified, not intractable, without status epilepticus; Z90.5 Acquired absence of kidney; Z79.620 Long term (current) use of immunosuppressive biologic; Z20.822 Contact with and (suspected) exposure to COVID-19
CPT/HCPCS: 36415; 71046; 74177; 80053; 81001; 82607; 82728; 82746; 82948; 83540; 83550; 83605; 83690; 83921; 84238; 85025; 85610; 85652; 85730; 86140; 87040; 87077; 87086; 87088; 87186; 87637; 96361; 96365; 96366; 96367; 96372; 96375; 96376; 99285; A9270; G0378; J0696; J1756; J2405; J3420; J7030; J7050; Q9967